=== PATIENT | female | born 1965 | race Caucasian/White ===

== ENCOUNTER 2023-04-01 10:16 | Day surgery (SDC) | payer BC ==
--- NOTE | 2023-04-01 09:51 | HP ---
DATE OF SURGERY: 04/01/2023 HISTORY OF PRESENT ILLNESS: The patient is a 57-year-old has some bloating after eating. She had gallbladder out in the past. She had a lot of nausea. She is concerned about persistent severe nausea. She had a cholecystectomy a couple of weeks ago. She is better from the soreness from cholecystectomy. She had a script for Zofran. Ordered hepatic function test. She wanted to be scheduled for upper endoscopy possible biopsy. PAST MEDICAL HISTORY: Asthma, anxiety, depression, asthma, gastroesophageal reflux disease, headaches in the past. PAST SURGICAL HISTORY: Cholecystectomy recently. section in the past. Hysterectomy. MEDICATIONS: Proventil HFA, Rizatriptan, vitamin B12, Lexapro, Sinemet. ALLERGIES: CELEBREX. METHYLPREDNISOLONE. PENICILLIN. FAMILY HISTORY: Mother had pancreatic cancer. SOCIAL HISTORY: No smoking or alcohol abuse. REVIEW OF SYSTEMS: Fourteen systems reviewed pertinent for the nausea, soreness from her cholecystectomy. Other systems negative or noncontributory as above and per preadmission questionnaire. PHYSICAL EXAMINATION: VITALS: Height 5'2". BMI 26.98. GENERAL: No acute distress. HEENT: Sclerae nonicteric. EOMI. Oropharynx mucous membranes moist. NECK: No JVD. CHEST: Equal excursion, nonlabored breathing. CVS: Regular rhythm and pulse. ABDOMEN: Soft. Incision clean, dry and intact. The abdomen had very soft, benign abdominal exam. No peritoneal signs. EXTREMITIES: No significant edema. NEURO: Alert, oriented, moving extremities symmetrically. No gross motor deficits noted. PSYCH: Appropriate mood and affect. SKIN: Dry. IMPRESSION: Some persistent nausea. The patient had an abnormal HIDA scan and ejection fraction I believe was a very low ejection fraction. She had cholecystectomy on 03/19/2023. She did have chronic cholecystitis, biliary dyskinesia. She had some intractable right upper quadrant pain and nausea at the time. Again, the pain she is having from the incision has improved. She is having persistent nausea of unclear etiology. It could be gastritis, peptic ulcer disease, celiac disease or other etiology. I feel she would benefit from upper endoscopy possible biopsy. I also ordered some labs that are pending at the time of the office visit. Otherwise general risk of bleeding or infection, risk of bowel injury or perforation possibly requiring further procedure, risk of missed or nondiagnosis or inability to diagnose the etiology of her symptoms possibly requiring further work up, CT scan, other studies or procedures. She might need HIDA with SOD score. She does have family history of pancreatic cancer in the past. Either way she may need further work up if this endoscopy fails to elicit etiology of her symptoms. She definitely had chronic cholecystitis but does not seem to be contributing to her persistent nausea that she has had. She has had a lot of nausea in preoperative. Will do EGD possible biopsy under MAC anesthesia. General risk of bleeding or infection, bowel injury or perforation, possibility of inability to diagnose the etiology of her symptoms requiring other studies, work up or referral. She understands and will proceed with EGD possible biopsy as an outpatient.
[~2023-04-01 10:16] MED LIST: Lactated Ringers 1,000 ML IV SCH
[2023-04-01] MEDS ORDERED: Lactated Ringers 1,000 ML IV ONE (10:58)
[2023-04-01] MEDS ORDERED: Versed 2 MG/2 ML Injection ONE (12:26)
[2023-04-01] MEDS ORDERED: DIPRIVAN 200 MG/20 ML IV ONE ×2 (12:26→13:01)
[2023-04-01] MEDS ORDERED: Zofran 4 MG/2 ML VIAL ONE (13:01)
[2023-04-01 13:57] VITALS: O2SAT 99
[2023-04-01 14:19] VITALS: BP 102/51; PULSE 65
--- NOTE | 2023-04-03 09:54 | OP ---
SURGERY DATE/TIME: 04/01/2023 1231 PREOPERATIVE DIAGNOSIS: Persistent nausea, history of cholecystectomy in the past, need for evaluation of gastritis or peptic ulcer disease. POSTOPERATIVE DIAGNOSES: 1) ASA Class II. 2) Very short segment distal esophagitis. 3) Mild erosive gastritis. 4) No large ulcers. PROCEDURES: 1) EGD with cold biopsy of small bowel to evaluate for celiac sprue. 2) Cold biopsy of the antrum to evaluate for Helicobacter pylori. 3) Cold biopsy distal esophagus to evaluate for very short segment early distal esophagitis. SURGEON: Dr. Piter Webster. ANESTHESIA: MAC. ESTIMATED BLOOD LOSS: Minimal. INDICATIONS: As noted above. Risks and benefits explained in detail and not limited to and consent obtained. DESCRIPTION OF PROCEDURE AND FINDINGS: The patient is taken to the endoscopy suite. MAC anesthesia introduced. After official time out and no disagreement with planned procedure, a bite block positioned. Video gastroscope easily passed down the esophagus through the patent pylorus to the junction of the third and fourth portion of the duodenum. Duodenum grossly unremarkable but given her symptom complaints cold biopsy taken to evaluate for celiac disease. Good hemostasis noted. Scope pulled back into the stomach. She did have some superficial erosions, some gastric erythema and congestion consistent with some mild erosive gastritis. There was nothing large enough to call an ulcer. Cold biopsy taken to evaluate for Helicobacter pylori. On retroflex, the gastroesophageal junction fairly snug with no signs of any significant hiatal hernia. The scope is straightened. Gastroesophageal junction was about 39 cm. There was a short segment of a little bit of distal inflammation a couple 2 or 3 mm consistent with possible early distal esophagitis versus normal variation of the gastroesophageal junction. Cold biopsy taken. Good hemostasis noted. The remainder of the esophagus grossly unremarkable. The scope is withdrawn. The patient tolerated the procedure well. Findings discussed with the family out in the waiting area.
== END 2023-04-01 14:25 | disposition home or self-care (01) ==
LOC: SDC 10:16
PROVIDERS: ATTEND Surgery
DX: K31.7 Polyp of stomach and duodenum (principal); K29.70 Gastritis, unspecified, without bleeding; K20.90 Esophagitis, unspecified without bleeding; R11.0 Nausea; Z90.49 Acquired absence of other specified parts of digestive tract; Z80.0 Family history of malignant neoplasm of digestive organs
CPT/HCPCS: J2250; J2405; J2704

== ENCOUNTER 2024-03-21 12:35 | Emergency (ER) | payer OTHER ==
[2024-03-21 12:46] VITALS: BP 118/96; TEMP 97.2
--- NOTE | 2024-03-21 13:08 | ERPHSYRPT ---
- History of Present Illness Time Seen by Provider: 03/21/24 13:03 Source: patient Exam Limitations: no limitations Patient Subjective Stated Complaint: pt here for n/v.for last 3 days. no pain no fever, Triage Nursing Assessment: pt alert, resp easy,walked in, skin w/d/p. abd soft. moves all ext well. no edema noted. Physician History: pt has 3 day hx of vomiting with no abdominal pain - she does feel hungry. No CP, No SObreath. No palpitations. No dizziness. Has parkinsons without any recent med changes and controlled well on meds. Abd is soft and nontender without peritoneal signs or masses or distension. discussed risks/benefits of testing CBC, CMP, UA EKG Trop , lactate, HCG, Stephenie lipase, and zofran tx with pt and spouse and they wish to continue and these are ordered. results discussed with pt and family. Timing/Duration: day(s) Severity: moderate Associated Symptoms: nausea, vomiting, No abdominal pain, No cough Allergies/Adverse Reactions: celecoxib [From Celebrex] Allergy (Unknown, Verified 03/21/24 12:43) methylprednisolone Allergy (Unknown, Verified 03/21/24 12:43) Penicillins Allergy (Unknown, Verified 03/21/24 12:43) Home Medications: Albuterol Sulfate [Proventil Hfa] 2 puff IH BIDPRN PRN 03/29/23 [History] Cyanocobalamin/Folic Acid [Vitamin Y72-Rkdyf Acid Tablet] 1 tab PO DAILY 03/29/23 [History] Atorvastatin Calcium 20 mg PO DAILY 03/21/24 [History] Carbidopa/Levodopa [Rytary ER 36.25 mg-145 mg Cap] 1 ea QID 03/21/24 [History] Pramipexole Di-HCl [Pramipexole Dihydrochloride] 0.25 mg PO TID 03/21/24 [History] Hx Influenza Vaccination/Date Given: No Hx Pneumococcal Vaccination/Date Given: No Immunizations Up to Date: Yes Travel Risk - International Travel Have you traveled outside of the country in past 3 weeks: No - Emerging Infectious Disease Are you exhibiting symptoms associated with any current EIDs: No - Review of Systems Constitutional: No Fever, No Chills Eyes: No Symptoms Ears, Nose, & Throat: No Symptoms Respiratory: No Cough, No Dyspnea Cardiac: No Chest Pain, No Edema, No Syncope Abdominal/Gastrointestinal: Nausea, Vomiting, No Abdominal Pain, No Diarrhea Genitourinary Symptoms: No Dysuria Musculoskeletal: No Back Pain, No Neck Pain Skin: No Rash Neurological: No Dizziness, No Focal Weakness, No Sensory Changes Psychological: No Symptoms Endocrine: No Symptoms Hematologic/Lymphatic: No Symptoms Immunological/Allergic: No Symptoms All Other Systems: Reviewed and Negative - Past Medical History Pertinent Past Medical History: Yes Neurological History: Migraines, Other ENT History: No Pertinent History Cardiac History: No Pertinent History Respiratory History: Asthma Endocrine Medical History: No Pertinent History Musculoskeletal History: No Pertinent History GI Medical History: GERD History: No Pertinent History Psycho-Social History: Anxiety, Depression Female Reproductive Disorders: No Pertinent History Other Medical History: parkinson meds - Past Surgical History Past Surgical History: Yes Neuro Surgical History: No Pertinent History Cardiac: No Pertinent History Respiratory: No Pertinent History Gastrointestinal: Cholecystectomy Genitourinary: No Pertinent History Musculoskeletal: No Pertinent History Female Surgical History: Hysterectomy, Section - Social History Smoking Status: Never smoker Exposure to second hand smoke: Yes Drug Use: none - Social Determinants of Health Will the patient participate in the screening: Declined to provide - Nursing Vital Signs Nursing Vital Signs: Initial Vital Signs Temperature 97.2 F 03/21/24 12:45 Pulse Rate 96 H 03/21/24 12:45 Respiratory Rate 18 03/21/24 12:45 Blood Pressure 118/96 03/21/24 12:45 O2 Sat by Pulse Oximetry 96 03/21/24 12:45 Pain Scale Pain Intensity 0 - Physical Exam General Appearance: no apparent distress, alert Eye Exam: PERRL/EOMI, eyes nml inspection Ears, Nose, Throat Exam: normal ENT inspection, TMs normal, pharynx normal, moist mucous membranes Neck Exam: normal inspection, non-tender, supple, full range of motion Respiratory Exam: normal breath sounds, lungs clear, No respiratory distress Cardiovascular Exam: regular rate/rhythm, normal heart sounds, normal peripheral pulses Gastrointestinal/Abdomen Exam: soft, normal bowel sounds, No tenderness, No mass Pelvic Exam: deferred Rectal Exam: deferred Back Exam: normal inspection, normal range of motion, No CVA tenderness, No vertebral tenderness Extremity Exam: normal inspection, normal range of motion, pelvis stable Neurologic Exam: alert, oriented x 3, cooperative, normal mood/affect, nml cerebellar function, nml station & gait, sensation nml, No motor deficits Skin Exam: normal color, warm, dry, No rash Lymphatic Exam: No adenopathy SpO2 Interpretation: normal SpO2: 96 O2 Delivery: Room Air - Course Nursing assessment & vital signs reviewed: Yes Ordered Tests: Active Orders 24 hr Category Date Time Status EKG-ER Only STAT Care 03/21/24 13:09 Active IV Insertion STAT Care 03/21/24 13:09 Active AMYLASE Stat Lab 03/21/24 13:00 Completed CBC W DIFF Stat Lab 03/21/24 13:09 Completed CMP Stat Lab 03/21/24 13:00 Completed CULTURE,URINE Stat Lab 03/21/24 13:22 Received HCG QUALITATIVE, SERUM Stat Lab 03/21/24 13:00 Completed LIPASE Stat Lab 03/21/24 13:00 Completed Lactic Acid Stat Lab 03/21/24 13:00 Completed TROPONIN Q4H Lab 03/21/24 13:00 Completed TROPONIN Q4H Lab 03/21/24 17:15 Ordered TROPONIN Q4H Lab 03/21/24 21:15 Ordered UA W/RFX UR CULTURE Stat Lab 03/21/24 13:22 Completed Medication Summary Discontinued Medications Generic Name Dose Route Start Last Admin Trade Name Freq PRN Reason Stop Dose Admin Sodium Chloride 1,000 mls @ 999 mls/hr 03/21/24 13:09 03/21/24 14:57 Sodium Chloride 0.9% 1000 Ml IV 03/21/24 14:09 Infused .Q1H1M STA Infusion Sodium Chloride Confirm 03/21/24 13:31 Sodium Chloride 0.9% 1000 Ml Administered 03/21/24 13:32 Dose 1,000 mls @ ud .ROUTE .STK-MED ONE Ondansetron HCl 4 mg 03/21/24 13:09 03/21/24 13:34 Ondansetron Hcl 4 Mg/2 Ml Vial IV 03/21/24 13:10 4 mg STAT ONE Administration Ondansetron HCl Confirm 03/21/24 13:31 Ondansetron Hcl 4 Mg/2 Ml Vial Administered 03/21/24 13:32 Dose 4 mg .ROUTE .STK-MED ONE Lab/Rad Data: Laboratory Result Diagrams 03/21/24 13:09 03/21/24 13:00 Laboratory Results 06/08/24 06/08/24 06/08/24 Range/Units 13:22 13:09 13:00 WBC 7.8 (3.98-10.04) x10^3/uL RBC 4.52 (3.93-5.22) x10^6/uL Hgb 14.6 (11.2-15.7) g/dL Hct 44.4 (34.1-44.9) % MCV 98.2 H (79.4-94.8) fL MCH 32.3 H (25.6-32.2) pg MCHC 32.9 (32.2-35.5) g/dL RDW 12.2 (11.7-14.4) % Plt Count 258 (182-369) x10^3/uL MPV 11.0 (9.4-12.3) fL Gran % 75.0 H (34.0-71.1) % Immature Gran % (Auto) 0.1 (0.001-0.429) % Nucleat RBC Rel Count 0.0 (0.00-0.2) % Eos # (Auto) 0.07 (0.04-0.36) x10^3/uL Immature Gran # (Auto) 0.01 (0.001-0.031) x10^3u/L Absolute Lymphs (auto) 1.55 (1.18-3.74) x10^3/uL Absolute Monos (auto) 0.29 (0.24-0.86) x10^3/uL Absolute Nucleated RBC 0.00 (0.00-0.012) x10^3u/L Lymphocytes % 19.8 (19.3-51.7) % Monocytes % 3.7 L (4.7-12.5) % Eosinophils % 0.9 (0.7-5.8) % Basophils % 0.5 (0.1-1.2) % Absolute Granulocytes 5.88 (1.56-6.13) x10^3/uL Basophils # 0.04 (0.01-0.08) x10^3/uL Sodium (135-145) mmol/L Potassium (3.5-5.1) mmol/L Chloride (98-107) mmol/L Carbon Dioxide (22-30) mmol/L Anion Gap (5-15) MEQ/L BUN (7-17) mg/dL Creatinine (0.52-1.04) mg/dL Estimated GFR ML/MIN Glucose (74-106) mg/dL Lactic Acid (0.4-2.0) Calcium (8.4-10.2) mg/dL Total Bilirubin (0.2-1.3) mg/dL AST (14-36) U/L ALT (0-35) U/L Alkaline Phosphatase (38-126) U/L Troponin I (0.000-0.033) ng/mL Serum Total Protein (6.3-8.2) g/dL Albumin (3.5-5.0) g/dL Amylase (30-110) U/L Lipase (23-300) U/L Serum HCG, Qual NEGATIVE (NEGATIVE) Urine Color Dark Yellow A (Yellow) Urine Appearance Cloudy A (Clear) Urine pH 5.0 (4.6-8.0) Ur Specific [place] >=1.030 A (1.005-1.030) Urine Protein 30 (Negative) Urine Glucose (UA) Negative (Negative) mg/dL Urine Ketones 15 A (Negative) Urine Blood Negative (Negative) Urine Nitrite Negative (Negative) Urine Bilirubin Small A (Negative) Urine Urobilinogen 1.0 A (0.2) mg/dL Ur Leukocyte Esterase Small A (Negative) U Hyaline Cast (Auto) 3-5 A (0-2) /LPF Urine Microscopic RBC 0-2 (0-5) /HPF Urine Microscopic WBC 0-2 (0-5) /HPF Ur Epithelial Cells Rare (None Seen) /HPF Urine Bacteria Few A (None Seen) /HPF Urine Culture Reflexed YES (NO) 03/21/24 03/21/24 03/21/24 Range/Units 13:00 13:00 13:00 WBC (3.98-10.04) x10^3/uL RBC (3.93-5.22) x10^6/uL Hgb (11.2-15.7) g/dL Hct (34.1-44.9) % MCV (79.4-94.8) fL MCH (25.6-32.2) pg MCHC (32.2-35.5) g/dL RDW (11.7-14.4) % Plt Count (182-369) x10^3/uL MPV (9.4-12.3) fL Gran % (34.0-71.1) % Immature Gran % (Auto) (0.001-0.429) % Nucleat RBC Rel Count (0.00-0.2) % Eos # (Auto) (0.04-0.36) x10^3/uL Immature Gran # (Auto) (0.001-0.031) x10^3u/L Absolute Lymphs (auto) (1.18-3.74) x10^3/uL Absolute Monos (auto) (0.24-0.86) x10^3/uL Absolute Nucleated RBC (0.00-0.012) x10^3u/L Lymphocytes % (19.3-51.7) % Monocytes % (4.7-12.5) % Eosinophils % (0.7-5.8) % Basophils % (0.1-1.2) % Absolute Granulocytes (1.56-6.13) x10^3/uL Basophils # (0.01-0.08) x10^3/uL Sodium 142 (135-145) mmol/L Potassium 3.7 (3.5-5.1) mmol/L Chloride 105 (98-107) mmol/L Carbon Dioxide 27 (22-30) mmol/L Anion Gap 13.0 (5-15) MEQ/L BUN 10 (7-17) mg/dL Creatinine 0.71 (0.52-1.04) mg/dL Estimated GFR 99.7 ML/MIN Glucose 100 (74-106) mg/dL Lactic Acid 0.8 (0.4-2.0) Calcium 9.9 (8.4-10.2) mg/dL Total Bilirubin 1.10 (0.2-1.3) mg/dL AST 26 (14-36) U/L ALT 9 (0-35) U/L Alkaline Phosphatase 89 (38-126) U/L Troponin I < 0.012 (0.000-0.033) ng/mL Serum Total Protein 7.6 (6.3-8.2) g/dL Albumin 4.8 (3.5-5.0) g/dL Amylase 72 (30-110) U/L Lipase 61 (23-300) U/L Serum HCG, Qual (NEGATIVE) Urine Color (Yellow) Urine Appearance (Clear) Urine pH (4.6-8.0) Ur Specific [place] (1.005-1.030) Urine Protein (Negative) Urine Glucose (UA) (Negative) mg/dL Urine Ketones (Negative) Urine Blood (Negative) Urine Nitrite (Negative) Urine Bilirubin (Negative) Urine Urobilinogen (0.2) mg/dL Ur Leukocyte Esterase (Negative) U Hyaline Cast (Auto) (0-2) /LPF Urine Microscopic RBC (0-5) /HPF Urine Microscopic WBC (0-5) /HPF Ur Epithelial Cells (None Seen) /HPF Urine Bacteria (None Seen) /HPF Urine Culture Reflexed (NO) - Progress Progress: improved, re-examined Progress Note: 03/21/24 16:11 pt ros meds and has no more vomiting , feels well and would like to leave and f/u PMD rather than stay in ER/hosp for further w/u as I have explained we have not determined the cause and there could be serious pathology such as abd C-V or other developing undetected - and she has the capacity to make this choice. She would like to have some Zofran until seeing PMD and will f/u with them and make them aware to avoid interactions with her usual meds. 03/21/24 16:24 Pt states no longer taking the escitalopram which could have interacted with Zofran and has tolerating zofran OK before on her parkinsons meds and wishes to proceed and has the capacity to make this choice. Counseled pt/family regarding: lab results, diagnosis, need for follow-up Medical Desision Making - Independent Historian Additional History obtained from: Spouse - Discussion of managment Reviewed:: Test results, Need for additional workup Agreed on:: Treatment plan, need for follow-up - Diagnostic Testing Diagnostic test were ordered, analyzed, and reviewed by me: Yes - Risk of complications The pt has a mod risk of morbidity or mortality based on: Need for prescription drug management The pt has a high risk of morbidity or mortality based on: Decision regarding hospitilization or escalation of hosp level of care - Departure Departure Disposition: Home Clinical Impression: Vomiting Condition: Good Critical Care Time: No Referrals: [facility] [facility] [Primary Care Provider] - Follow up/PCP as directed Instructions: Nausea and Vomiting, Adult ED Additional Instructions: We were not able to determine the cause for your vomiting, and there could be conditions developing undetected, so followup with your Dr. is important especially with your underlying conditions. Return meantime if any chest pa in, short of breath, vomiting continues, stomach pain, dizziness or any other concerns. Prescriptions: Ondansetron ODT 4 MG [Zofran Odt 4 mg] 4 mg PO Q6HPRN PRN #10 tab PRN Reason: Nausea
[2024-03-21 13:20] LABS: Absolute Neutrophil Ct (ANC) 5.88 x10^3/uL (1.56-6.13); BASOPHIL % 0.5 % (0.1-1.2); Basophil (Absolute #) 0.04 x10^3/uL (0.01-0.08); Eosinophil % 0.9 % (0.7-5.8); Eosinophil (Absolute #) 0.07 x10^3/uL (0.04-0.36); Hematocrit 44.4 % (34.1-44.9); Hemoglobin 14.6 g/dL (11.2-15.7); IMMATURE GRAN # 0.01 x10^3u/L (0.001-0.031); IMMATURE GRAN % 0.1 % (0.001-0.429); Lymphocyte (Absolute #) 1.55 x10^3/uL (1.18-3.74); Lymphocytes % 19.8 % (19.3-51.7); Mean Cell Volume 98.2 fL (79.4-94.8); Mean Corpuscular Hemoglobin 32.3 pg (25.6-32.2); Mean Corpuscular Hgb Concent. 32.9 g/dL (32.2-35.5); Monocyte (Absolute #) 0.29 x10^3/uL (0.24-0.86); Monocytes % 3.7 % (4.7-12.5); Platelet Count 258 x10^3/uL (182-369); Red Blood Count 4.52 x10^6/uL (3.93-5.22); Red Cell Distribution Width 12.2 % (11.7-14.4); White Blood Count 7.8 x10^3/uL (3.98-10.04)
[2024-03-21 13:31] LABS: HCG SERUM TEST NEGATIVE (NEGATIVE)
[2024-03-21] MEDS ORDERED: Zofran 4 MG/2 ML VIAL ONE (13:31)
[2024-03-21] MEDS ORDERED: Sodium Chloride 0.9% 1000 ML 1,000 ML ONE (13:31)
[2024-03-21 13:34] LABS: ALBUMIN 4.8 g/dL (3.5-5.0); BILIRUBIN,TOTAL 1.1 mg/dL (0.2-1.3); Calcium 9.9 mg/dL (8.4-10.2); Creatinine 1 0.71 mg/dL (0.52-1.04); EST GLOMERULAR FILTRATION RATE 99.7 ML/MIN; Potassium 3.7 mmol/L (3.5-5.1); Total Protein 7.6 g/dL (6.3-8.2)
[2024-03-21] MEDS: Zofran 4 MG/2 ML VIAL IV ONE (13:34)
[2024-03-21] MEDS: Sodium Chloride 0.9% 1000 ML 1,000 ML IV STA (13:35)
[2024-03-21 13:59] LABS: ADD URINE CULTURE? YES (NO); Appearance Cloudy (Clear); Bacteria Few /HPF (None Seen); Bilirubin Small (Negative); Blood Negative (Negative); Epithelial Cells Rare /HPF (None Seen); Glucose, Urine Negative (Negative); Ketones 15 (Negative); Leukocyte Esterase Small (Negative); Nitrite Negative (Negative); Protein,Urine Dip 30 (Negative); RBC 0-2 /HPF (0-5); Specific Gravity >=1.030 (1.005-1.030); WBC 0-2 /HPF (0-5)
[2024-03-21 16:14] VITALS: O2SAT 96
[2024-03-21 16:27] VITALS: PULSE 80; RESP 17
== END 2024-03-21 16:31 | disposition home or self-care (01) ==
LOC: ED 12:35
DX: R11.2 Nausea with vomiting, unspecified (principal); Z79.899 Other long term (current) drug therapy
CPT/HCPCS: 36000; 36415; 80053; 81001; 82150; 83605; 83690; 84484; 84703; 85025; 87086; 93005; 96360; 96374; 99284; J2405

== ENCOUNTER 2025-07-22 15:32 | Emergency (ER) | payer OTHER ==
--- NOTE | 2025-07-22 15:40 | ERPHSYRPT ---
- History of Present Illness Time Seen by Provider: 07/22/25 15:40 Historian: patient, family Exam Limitations: clinical condition Physician History: This is a 59-year-old white female patient arrives by private vehicle and is a patient of nurse practitioner [place]. She is accompanied by daughter and significant other with a complaint of upper abdominal pain with vomiting. She has the symptoms often, chronically. However, this morning the pain was more intense and lasted longer than usual. She states that she cannot eat large amounts of food and the pain is more intense when she eats larger sized meals. Patient has had a cholecystectomy, hysterectomy and section in the past. She has a history of hyperlipidemia, asthma, migraine headaches, Parkinson's disease, gastroesophageal reflux disease, anxiety/depression. She denies chest pain and she denies shortness of breath. Timing/Duration: today Activities at Onset: none Quality: sharpness Abdominal Pain Onset Location: epigastric, other (Supraumbilical) Pain Radiation: no radiation Severity of Pain-Max: mild (To moderate) Severity of Pain-Current: mild (To moderate) Modifying Factors: Improves With: vomiting Associated Symptoms: loss of appetite, nausea, vomiting, No chest pain, No shortness of breath Previous symptoms: same symptoms as today, no recent treatment Allergies/Adverse Reactions: celecoxib [From Celebrex] Allergy (Unknown, Verified 03/21/24 12:43) methylprednisolone Allergy (Unknown, Verified 03/21/24 12:43) Penicillins Allergy (Unknown, Verified 03/21/24 12:43) Home Medications: Baclofen 5 mg PO HS 07/22/25 [History] Carbidopa/Levodopa [Crexont ER 87.5 mg-350 mg Cap] 1 cap PO Q4HWA 07/22/25 [History] Sertraline HCl 100 mg PO DAILY 07/22/25 [History] clonazePAM [Clonazepam] 1 mg PO HS 07/22/25 [History] Hx Influenza Vaccination/Date Given: No Hx Pneumococcal Vaccination/Date Given: No Travel Risk - International Travel Have you traveled outside of the country in past 3 weeks: No - Emerging Infectious Disease Are you exhibiting symptoms associated with any current EIDs: No - Review of Systems Constitutional: No Symptoms Eyes: No Symptoms Ears, Nose, & Throat: No Symptoms Respiratory: No Symptoms Cardiac: No Symptoms Abdominal/Gastrointestinal: Abdominal Pain, Nausea, Vomiting, Appetite Changes, No Diarrhea Genitourinary Symptoms: No Symptoms Musculoskeletal: No Symptoms Skin: No Symptoms Neurological: No Symptoms Psychological: No Symptoms Endocrine: No Symptoms Hematologic/Lymphatic: No Symptoms Immunological/Allergic: No Symptoms All Other Systems: Reviewed and Negative - Past Medical History Pertinent Past Medical History: Yes Neurological History: Migraines, Other ENT History: No Pertinent History Cardiac History: No Pertinent History Respiratory History: Asthma Endocrine Medical History: No Pertinent History Musculoskeletal History: No Pertinent History GI Medical History: GERD History: No Pertinent History Psycho-Social History: Anxiety, Depression Female Reproductive Disorders: No Pertinent History Other Medical History: parkinson meds - Past Surgical History Past Surgical History: Yes Neuro Surgical History: No Pertinent History Cardiac: No Pertinent History Respiratory: No Pertinent History Gastrointestinal: Cholecystectomy Genitourinary: No Pertinent History Musculoskeletal: No Pertinent History Female Surgical History: Hysterectomy, Section - Social History Smoking Status: Never smoker Exposure to second hand smoke: Yes Drug Use: none - Social Determinants of Health Will the patient participate in the screening: Declined to provide - Nursing Vital Signs Nursing Vital Signs: Initial Vital Signs Temperature 99.0 F 07/22/25 15:33 Pulse Rate 84 07/22/25 15:33 Respiratory Rate 18 07/22/25 15:33 Blood Pressure 142/73 07/22/25 15:33 O2 Sat by Pulse Oximetry 98 07/22/25 15:33 Pain Scale Pain Intensity 0 - Physical Exam General Appearance: no apparent distress, alert, anxiety, thin Eye Exam: PERRL/EOMI, eyes nml inspection Ears, Nose, Throat Exam: normal ENT inspection, moist mucous membranes Neck Exam: normal inspection, non-tender, supple, full range of motion Respiratory Exam: normal breath sounds, lungs clear, airway intact, No chest tenderness, No respiratory distress Cardiovascular Exam: regular rate/rhythm, normal heart sounds, normal peripheral pulses Gastrointestinal/Abdomen Exam: soft, normal bowel sounds, tenderness (Supraumbilical and epigastrium), guarding (Mild to palpation supraumbilical and epigastric midline), No pulsatile mass, No rebound Pelvic Exam: not done Rectal Exam: not done Back Exam: normal inspection, normal range of motion, No CVA tenderness, No vertebral tenderness Extremity Exam: normal inspection, normal range of motion, pelvis stable Neurologic Exam: alert, oriented x 3, cooperative, 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, nml cerebellar function, nml station & gait, sensation nml Skin Exam: normal color, warm, dry Lymphatic Exam: No adenopathy SpO2 Interpretation: normal O2 Delivery: Room Air - Course Nursing assessment & vital signs reviewed: Yes Ordered Tests: Active Orders 24 hr Category Date Time Status IV Insertion STAT Care 07/22/25 16:36 Active ABDOMEN AND PELVIS W/0 CONTRAS [CT] Stat Exams 07/22/25 16:36 Taken AMYLASE Stat Lab 07/22/25 16:50 Completed CBC W DIFF Stat Lab 07/22/25 16:50 Completed CMP Stat Lab 07/22/25 16:50 Completed CULTURE,URINE Stat Lab 07/22/25 16:36 Received LIPASE Stat Lab 07/22/25 16:50 Completed UA W/RFX UR CULTURE Stat Lab 07/22/25 16:36 Completed Medication Summary Generic Name Dose Route Start Last Admin Trade Name Freq PRN Reason Stop Dose Admin Sodium Chloride 500 mls @ 500 mls/hr 07/22/25 18:21 07/22/25 18:27 Sodium Chloride 0.9% 500 Ml IV 07/22/25 19:20 500 mls/hr .Q1H ONE Administration Discontinued Medications Generic Name Dose Route Start Last Admin Trade Name Freq PRN Reason Stop Dose Admin Hydromorphone HCl 0.5 mg 07/22/25 16:36 07/22/25 16:43 Hydromorphone 1 Mg/1ml Inj IV 07/22/25 16:37 0.5 mg STAT ONE Administration Hydromorphone HCl Confirm 07/22/25 16:41 Hydromorphone 1 Mg/1ml Inj Administered 07/22/25 16:42 Dose 1 mg .ROUTE .STK-MED ONE Sodium Chloride 1,000 mls @ 999 mls/hr 07/22/25 16:36 07/22/25 17:49 Sodium Chloride 0.9% 1000 Ml IV 07/22/25 17:36 Infused .Q1H1M STA Infusion Sodium Chloride Confirm 07/22/25 16:41 Sodium Chloride 0.9% 1000 Ml Administered 07/22/25 16:42 Dose 1,000 mls @ ud .ROUTE .STK-MED ONE Levofloxacin/Dextrose 500 mg in 100 mls @ 100 mls/hr 07/22/25 17:32 07/22/25 18:44 Levofloxacin 500mg/100ml D5w IV 07/22/25 18:31 Infused STAT STA Infusion Levofloxacin/Dextrose Confirm 07/22/25 17:41 Levofloxacin 500mg/100ml D5w Administered 07/22/25 17:42 Dose 500 mg in 100 mls @ ud IV .STK-MED ONE Ondansetron HCl 4 mg 07/22/25 16:36 07/22/25 16:43 Ondansetron Hcl 4 Mg/2 Ml Vial IV 07/22/25 16:37 4 mg STAT ONE Administration Ondansetron HCl Confirm 07/22/25 16:41 Ondansetron Hcl 4 Mg/2 Ml Vial Administered 07/22/25 16:42 Dose 4 mg .ROUTE .STK-MED ONE Ondansetron HCl 4 mg 07/22/25 18:20 07/22/25 18:27 Ondansetron Hcl 4 Mg/2 Ml Vial IV 07/22/25 18:21 4 mg STAT ONE Administration Lab/Rad Data: Laboratory Result Diagrams 07/22/25 16:50 07/22/25 16:50 Laboratory Results 07/22/25 07/22/25 07/22/25 Range/Units 16:50 16:50 16:36 WBC 8.8 (3.98-10.04) x10^3/uL RBC 3.83 L (3.93-5.22) x10^6/uL Hgb 11.6 (11.2-15.7) g/dL Hct 35.5 (34.1-44.9) % MCV 92.7 (79.4-94.8) fL MCH 30.3 (25.6-32.2) pg MCHC 32.7 (32.2-35.5) g/dL RDW 16.0 H (11.7-14.4) % Plt Count 270 (182-369) x10^3/uL MPV 12.4 H (9.4-12.3) fL Gran % 80.9 H (34.0-71.1) % Immature Gran % (Auto) 0.3 (0.001-0.429) % Nucleat RBC Rel Count 0.0 (0.00-0.2) % Eos # (Auto) 0.02 L (0.04-0.36) x10^3/uL Immature Gran # (Auto) 0.03 (0.001-0.031) x10^3u/L Absolute Lymphs (auto) 1.13 L (1.18-3.74) x10^3/uL Absolute Monos (auto) 0.49 (0.24-0.86) x10^3/uL Absolute Nucleated RBC 0.00 (0.00-0.012) x10^3u/L Lymphocytes % 12.8 L (19.3-51.7) % Monocytes % 5.6 (4.7-12.5) % Eosinophils % 0.2 L (0.7-5.8) % Basophils % 0.2 (0.1-1.2) % Absolute Granulocytes 7.11 H (1.56-6.13) x10^3/uL Basophils # 0.02 (0.01-0.08) x10^3/uL Sodium 134 L (135-145) mmol/L Potassium 3.7 (3.5-5.1) mmol/L Chloride 99 (98-107) mmol/L Carbon Dioxide 28 (22-30) mmol/L Anion Gap 11.2 (5-15) MEQ/L BUN 9 (7-17) mg/dL Creatinine 0.38 L (0.52-1.04) mg/dL Estimated GFR 116.8 ML/MIN Glucose 111 H (74-106) mg/dL Calcium 9.1 (8.4-10.2) mg/dL Total Bilirubin 0.70 (0.2-1.3) mg/dL AST 16 (14-36) U/L ALT 7 (0-35) U/L Alkaline Phosphatase 108 (38-126) U/L Serum Total Protein 6.5 (6.3-8.2) g/dL Albumin 4.1 (3.5-5.0) g/dL Amylase 63 (30-110) U/L Lipase 69 (23-300) U/L Urine Color Dark Yellow A (Yellow) Urine Appearance Turbid A (Clear) Urine pH 5.5 (4.6-8.0) Ur Specific [place] >=1.030 A (1.005-1.030) Urine Protein 30 (Negative) Urine Glucose (UA) Negative (Negative) mg/dL Urine Ketones 40 A (Negative) Urine Blood Negative (Negative) Urine Nitrite Negative (Negative) Urine Bilirubin Small A (Negative) Urine Urobilinogen 1.0 A (0.2) mg/dL Ur Leukocyte Esterase Moderate A (Negative) U Hyaline Cast (Auto) 6-10 A (0-2) /LPF Urine Microscopic RBC 6-10 A (0-5) /HPF Urine Microscopic WBC >100 A (0-5) /HPF Ur Epithelial Cells Moderate A (None Seen) /HPF Calcium Oxalate Crystal 3-5 A (None Seen) /HPF Urine Bacteria Many A (None Seen) /HPF Urine Culture Reflexed YES (NO) - Progress Progress: improved, pain not gone completely, re-examined Progress Note: 07/22/25 16:49 My medical decision making and the assignment of at least moderate complexity of this patient's medical issue today is based on review of the patient's past medical history, reviewed patient's medication list, reviewed patient drug allergy list, history of present illness and physical findings on examination. The workup in this patient includes placement of intravenous line, infusion of normal saline solution, infusion of pain medication intravenously, infusion of antiemetics, CBC, CMP, amylase, lipase, urinalysis, CT scan of the abdomen pelvis without contrast. Differential diagnosis includes was not limited to dehydration, urinary tract infection, pancreatitis, perforated viscus, gastritis, peptic ulcer disease, bowel obstruction 07/22/25 18:57 I interpreted the patient's laboratory data results. Based on laboratory data results, the patient has a urinary tract infection and significant dehydration. There are no other acute, emergency medical issues based on the laboratory data results. CT scan of the abdomen pelvis without contrast was interpreted by the radiologist and I reviewed the impression. The impression states no comparison films. Mild emphysema. Mild fecal stasis and sigmoid diverticulosis. Otherwise normal CT scan of the abdomen pelvis without contrast. Counseled pt/family regarding: lab results, diagnosis, rad results Medical Desision Making - Independent Historian Additional History obtained from: Spouse, Family - Diagnostic Testing Diagnostic test were ordered, analyzed, and reviewed by me: Yes Radiological Interpretation: Reviewed by me, Teleradiologist Report - Risk of complications Low Risk: Low risk of morbidity from additional dx testing or treatment The pt has a mod risk of morbidity or mortality based on: Need for prescription drug management - Departure Departure Disposition: Home Clinical Impression: Abdominal pain, Dehydration, Vomiting, Urinary tract infection Condition: Stable Critical Care Time: No Referrals: ACE LOPEZ, [employer] [Primary Care Provider, UNKNOWN] - Follow up/PCP as directed Additional Instructions: Drink plenty of clear liquids. Do not advance your diet unless you are tolerating clear liquids well. Take your antibiotics and other medications as prescribed. Call your primary care provider tomorrow, 07/23/2025, to make arrangements for follow-up appointment for further evaluation management Prescriptions: Ondansetron ODT 4 MG [Zofran Odt 4 mg] 4 mg PO Q12H PRN PRN #10 tablet PRN Reason: Vomiting Ciprofloxacin [Cipro 500 MG] 500 mg PO BID #14 tablet
[2025-07-22 16:00] VITALS: TEMP 99
[2025-07-22] MEDS ORDERED: Zofran 4 MG/2 ML VIAL ONE (16:41)
[2025-07-22] MEDS ORDERED: Hydromorphone 1 mg/ml Injection ONE (16:41)
[2025-07-22] MEDS: Zofran 4 MG/2 ML VIAL IV ONE ×2 (16:43→18:27)
[2025-07-22] MEDS: Hydromorphone 1 mg/ml Injection IV ONE (16:43)
[2025-07-22 16:58] LABS: BASOPHIL % 0.2 % (0.1-1.2); Basophil (Absolute #) 0.02 x10^3/uL (0.01-0.08); Eosinophil (Absolute #) 0.02 x10^3/uL (0.04-0.36); Hematocrit 35.5 % (34.1-44.9); Hemoglobin 11.6 g/dL (11.2-15.7); IMMATURE GRAN # 0.03 x10^3u/L (0.001-0.031); IMMATURE GRAN % 0.3 % (0.001-0.429); Lymphocyte (Absolute #) 1.13 x10^3/uL (1.18-3.74); Mean Corpuscular Hemoglobin 30.3 pg (25.6-32.2); Mean Corpuscular Hgb Concent. 32.7 g/dL (32.2-35.5); Monocyte (Absolute #) 0.49 x10^3/uL (0.24-0.86); NUCLEATED RBC # 0.00 x10^3u/L (0.00-0.012); NUCLEATED RBC % 0.0 % (0.00-0.2); Platelet Count 270 x10^3/uL (182-369); Red Blood Count 3.83 x10^6/uL (3.93-5.22); White Blood Count 8.8 x10^3/uL (3.98-10.04)
[2025-07-22 17:14] LABS: Calcium 9.1 mg/dL (8.4-10.2); Carbon Dioxide 28.0 mmol/L (22-30); Creatinine 1 0.38 mg/dL (0.52-1.04); EST GLOMERULAR FILTRATION RATE 116.8 ML/MIN; Glucose 111.0 mg/dL (74-106); Potassium 3.7 mmol/L (3.5-5.1); SGOT/AST 16.0 U/L (14-36); SGPT/ALT 7.0 U/L (0-35); Total Protein 6.5 g/dL (6.3-8.2)
[2025-07-22 17:16] LABS: Glucose, Urine Negative (Negative); Protein,Urine Dip 30 (Negative); WBC >100 /HPF (0-5)
[2025-07-22] MEDS ORDERED: Levofloxacin 500MG/100ML D5W 500 MG/100 ML BAG IV ONE (17:41)
[2025-07-22] MEDS: Levofloxacin 500MG/100ML D5W 500 MG/100 ML BAG IV STA (17:43)
[2025-07-22 19:05] VITALS: BP 124/68; PULSE 69; RESP 13; O2SAT 100
--- NOTE | 2025-07-23 08:50 | XRAY ---
Indication: Epigastric pain. Vomiting. Multiple contiguous axial images obtained through the abdomen and pelvis without contrast. Comparison: None Lung bases clear with mild emphysema. Heart not enlarged. Noncontrasted stomach and bowel loops appear nonobstructed. There is mild diffuse scattered colonic fecal debris and mild sigmoid diverticulosis without diverticulitis. Previous cholecystectomy and hysterectomy. No free fluid/air. Remaining liver, pancreas, spleen, adrenal glands, kidneys, ureters, bladder, and aorta are unremarkable for noncontrast exam. Osseous structures intact. No ventral or inguinal hernias. Impression: Pulmonary emphysema, mild colonic fecal stasis, and sigmoid diverticulosis. Remaining CT abdomen/pelvis without contrast exam is negative.
== END 2025-07-22 19:30 | disposition home or self-care (01) ==
LOC: ED 15:32
DX: N39.0 Urinary tract infection, site not specified (principal); R10.10 Upper abdominal pain, unspecified; E86.0 Dehydration; R11.2 Nausea with vomiting, unspecified; Z79.899 Other long term (current) drug therapy